=== PATIENT | female | born 1965 ===

== ENCOUNTER → 2025-03-20 06:07 | Day surgery (SDC) | payer OTHER, SELFPAY ==
[2025-03-20 11:47] VITALS: BMI 34.2
[2025-03-20 11:48] VITALS: BP 117/73; BMI 34.2
[2025-03-20 15:03] VITALS: BP 106/59
[2025-03-20 15:15] VITALS: BP 100/54
[2025-03-20 15:30] VITALS: BP 111/70
== END ==
LOC: SDS 06:07
PROVIDERS: ATTENDING PHYSICIAN Internal Medicine Gastroenterology
DX: K86.2 Cyst of pancreas (principal); K86.9 Disease of pancreas, unspecified; R59.0 Localized enlarged lymph nodes; K76.9 Liver disease, unspecified
CPT/HCPCS: 43242